=== PATIENT | female | born 1990 | race Caucasian/White ===

== ENCOUNTER 2016-05-04 13:59 | Emergency (ER) | payer OTHER ==
[2016-05-04 14:44] VITALS: BP 125/57
--- NOTE | 2016-05-04 15:06 | UC ---
Complaint Female HPI - HPI Summary HPI Summary: 25 yo healthy female presents with c/o of 2 days of increased urinary frequency , urgency and burning. Notes cloudy urine. No fever, chills, N/V. Denies back or flank pain. no abdominal pain. Denies vaginal discharge, itching or foul odor. No hx of UTI in the past - History Of Current Complaint Chief Complaint: UCGU Stated Complaint: URINARY COMPLAINT Time Seen by Provider: 05/04/16 14:57 Hx Last Menstrual Period: 04/26/16 ?: No Onset/Duration: Sudden Onset, Lasting Days - 2 days Timing: Intermittent Severity Initially: Moderate Severity Currently: Moderate Pain Intensity: 2 Pain Scale Used: 0-10 Numeric Character: Burning Aggravating Factor(s): Nothing Alleviating Factor(s): Nothing Associated Signs And Symptoms: Positive: Negative - Risk Factors Ectopic Risk Factor: Negative Ovarian Torsion Risk Factor: Negative - Allergies/Home Medications Allergies/Adverse Reactions: Allergies Allergy/AdvReac Type Severity Reaction Status Date / Time Cefprozil [From Cefzil] Allergy Intermediate Rash Verified 05/04/16 14:45 Home Medications: Home Medications Ascorbic Acid TAB* [Vitamin C TAB*] 500 mg PO DAILY 05/04/16 [History Confirmed 05/04/16] PMH/Surg Hx/FS Hx/Imm Hx Previously Healthy: Yes Endocrine History Of: Denies: Diabetes GI/ History Of: Denies: Kidney Stones, Renal Disease, Urosepsis - Surgical History Surgical History: Yes Surgery Procedure, Year, and Place: R leg surgery- 2006. wisdom teeth extraction 2010 - Family History Known Family History: Positive: None - Social History Occupation: Employed Full-time Lives: With Family Alcohol Use: Rare Substance Use Type: None Smoking Status (MU): Never Smoked Tobacco Have You Smoked in the Last Year: No - Immunization History Hx Tetanus, Diphtheria Vaccination: Yes Vaccination Up to Date: Yes Review of Systems Constitutional: Other - urinary symptoms Skin: Negative Eyes: Negative ENT: Negative Respiratory: Negative Cardiovascular: Negative Gastrointestinal: Negative Genitourinary: Dysuria, Frequency, Urgency Motor: Negative Neurovascular: Negative Musculoskeletal: Negative Neurological: Negative Psychological: Negative All Other Systems Reviewed And Are Negative: Yes Physical Exam Triage Information Reviewed: Yes Appearance: Well-Appearing, No Pain Distress, Well-Nourished Vital Signs: Initial Vital Signs Temp 99.0 F 05/04/16 14:41 Pulse 65 05/04/16 14:41 Resp 16 05/04/16 14:41 BP 125/57 05/04/16 14:41 Pulse Ox 100 05/04/16 14:41 Vital Signs Reviewed: Yes Neck: Positive: Supple, Nontender, No Lymphadenopathy Respiratory: Positive: Chest non-tender, Lungs clear, Normal breath sounds, No respiratory distress, No accessory muscle use Cardiovascular Exam: Normal Cardiovascular: Positive: RRR, No Murmur, Pulses Normal Abdomen Description: Positive: Nontender, No Organomegaly, Soft. Negative: CVA Tenderness (R), CVA Tenderness (L), Distended, Guarding, Peritoneal Signs, Splenomegaly Bowel Sounds: Positive: Present Neurological: Positive: Alert Psychological Exam: Normal Diagnostics - Laboratory Diagnostic Studies Completed/Ordered: urinalysis: 3+ leukocytes, + blood Complaint Female Dx - Differential Dx/Diagnosis Differential Diagnosis/HQI/PQRI: Urinary Tract Infection Provider Diagnoses: 1. uncomplicated acute urinary tract infection Discharge - Discharge Plan Condition: Stable Disposition: HOME Prescriptions: Nitrofurantoin Monohyd Macro [Macrobid] 100 mg PO BID #10 cap Patient Education Materials: Urinary Tract Infection in Women (ED) Referrals: Micheal Maldonado MD [Primary Care Provider] - Additional Instructions: If you have any worsening or concerning symptoms return or go the the emergency department.
== END 2016-05-04 15:18 | disposition home or self-care (01) ==
LOC: UCCORT 13:59
DX: N39.0 Urinary tract infection, site not specified (principal); Z88.1 Allergy status to other antibiotic agents
CPT/HCPCS: 81003; 87077; 87086; 87186; 99212; G0463